=== PATIENT | male | born 1985 | race Caucasian/White ===

== ENCOUNTER 2023-01-31 07:44 | Emergency (ER) | payer OTHER, SELFPAY ==
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
[2023-01-31 07:44] VITALS: BP 118/84; PULSE 78; RESP 18; TEMP 37; O2SAT 98
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
[2023-01-31 07:58] VITALS: BP 118/84; PULSE 78; RESP 18; TEMP 37; O2SAT 98
[2023-01-31 08:03] VITALS: BP 110/81
[2023-01-31] MEDS: fentaNYL CITRATE INJ (*CRX) 100 MCG/2 ML VIAL 70 MCG IV PUSH (08:10)
[2023-01-31 08:45] VITALS: BP 124/81; PULSE 75; RESP 16; O2SAT 98
--- NOTE | 2023-01-31 08:53 | PC.NURSE ---
ISP AT BEDSIDE
[2023-01-31] MEDS: SILVER SULFADIAZINE 1% CR 50 GM JAR (*BKC) 1 APPLIC TOPICAL (08:55)
[2023-01-31 09:20] VITALS: BP 104/84; PULSE 75; RESP 16; O2SAT 95
[2023-01-31 09:20] LABS: Basophils Absolute Auto 0.05 K/mm3 (0.00-0.10); Basophils Percent Auto 0.4 % (0.0-1.0); Eosinophils Absolute Auto 0.07 K/mm3 (0.02-0.50); Eosinophils Percent Auto 0.5 % (1.0-6.0); Hematocrit 45.8 % (40.0-54.0); Hemoglobin 16.5 g/dL (14.0-18.0); Immature Granulocyte Absolute 0.09 K/mm3 (0.00-0.00); Immature Granulocyte Percent A 0.7 % (0.0-0.0); Lymphocytes Absolute Auto 0.88 K/mm3 (1.10-4.50); Lymphocytes Percent Auto 6.7 % (18.0-42.0); Mean Corpuscular Hemoglobin 31.1 pg (27.0-31.0); Mean Corpuscular Volume 86.3 fL (78.0-102.0); Monocytes Absolute Auto 0.68 K/mm3 (0.10-0.90); Monocytes Percent Auto 5.2 % (2.0-11.0); Neutrophils Absolute Auto 11.3 K/mm3 (1.7-7.2); Neutrophils Percent Auto 86.5 % (50.0-70.0); Platelet Count Result 218 K/mm3 (150-420); Red Blood Count 5.31 M/mm3 (4.70-6.10); Red Cell Distribution Width 12.2 % (11.6-14.4); White Blood Count 13.1 K/mm3 (4.8-10.8)
[2023-01-31] MEDS: HYDROmorphone HCL INJ (*CRX) 2 MG/ML VIAL 1 MG IV PUSH (09:22)
[2023-01-31] MEDS: LACTATED RINGERS 1,000 ML 999 ML IV CONT (09:23)
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
--- NOTE | 2023-01-31 09:27 | PC.NURSE ---
CT IMAGES WERE SENT TO [facility] AND DISC SENT WITH PT.
[2023-01-31 09:36] LABS: Alanine Aminotransferase 38 U/L (16-63); Albumin Level 4.4 g/dL (3.4-5.0); Alkaline Phosphatase 83 U/L (46-116); Anion Gap 6 mmol/L (8-16); Aspartate Amino Transferase 20 U/L (15-37); Bilirubin,Total 0.6 mg/dL (0.00-1.00); Blood Urea Nitrogen 10 mg/dL (7-18); Carbon Dioxide 30 mmol/L (21-32); Chloride 103 mmol/L (98-108); Estimated CRCL calculation 81 ml/min; Estimated Glomerular Filt Rate > 60; Glucose 110 mg/dL (70-99); Osmolality Calculated 288 mOsm/kg (285-295); Partial Thromboplastin Time 24.8 SEC (23.90-30.70); Potassium 3.7 mmol/L (3.5-5.1); Prothrombin Time 10.7 Seconds (9.50-12.10); Sodium 139 mmol/L (136-145); Total Protein 7.2 g/dL (6.4-8.2)
== END 2023-01-31 09:46 | disposition short-term general hospital (02) ==
PROVIDERS: Emergency Provider Emergency Medicine
DX: S72.002A Fracture of unspecified part of neck of left femur, initial encounter for closed fracture (principal); F17.210 Nicotine dependence, cigarettes, uncomplicated; V89.2XXA Person injured in unspecified motor-vehicle accident, traffic, initial encounter; Y92.411 Interstate highway as the place of occurrence of the external cause
CPT/HCPCS: 36415; 70450; 73502; 80053; 85025; 85610; 85730; 96374; 96375; 99285; A9270; J1170; J3010; J7120